=== PATIENT | female | born 1995 | race Two or more races ===

== ENCOUNTER 2019-10-20 16:12 | Emergency (ER) | payer SELFPAY ==
[~2019-10-20] VITALS: Ht 167.6 cm; Wt 128.3 kg
[2019-10-20 16:39] VITALS: BP 158/89
[2019-10-20] MEDS ORDERED: DEXAMETHASONE 4 MG TABLET ONE (17:02)
[2019-10-20] MEDS ORDERED: IBUPROFEN 600 MG TABLET ONE (17:02)
[2019-10-20] MEDS ORDERED: ONDANSETRON ODT 4 MG ONE (17:40)
[2019-10-20 17:45] LABS: RAPID INFLUENZA A Negative (Negative); RAPID INFLUENZA B Negative (Negative)
[2019-10-20] MEDS ORDERED: ONDANSETRON ODT 4 MG PO ONE (18:00)
[2019-10-20] MEDS ORDERED: DEXAMETHASONE 4 MG TABLET PO ONE (18:00)
[2019-10-20] MEDS ORDERED: IBUPROFEN 600 MG TABLET PO ONE (18:00)
== END 2019-10-20 18:20 | disposition home or self-care (01) ==
LOC: ED 18:00
DX: J06.9 Acute upper respiratory infection, unspecified (principal); J02.9 Acute pharyngitis, unspecified
CPT/HCPCS: 71046; 87081; 87400; 87880; 99284; Q0162; 87147

== ENCOUNTER 2019-10-31 12:11 | Emergency (ER) | payer SELFPAY | END 2019-10-31 12:33 | disposition left against medical advice (07) | LOC: ED 12:22 | DX: J02.0 Streptococcal pharyngitis (principal) | CPT/HCPCS: 99281 ==